=== PATIENT | male | born 1995 | race Caucasian/White ===

== ENCOUNTER 2019-07-28 09:17 | Emergency (ER) | payer SELFPAY ==
[2019-07-28 09:40] VITALS: BP 124/74; PULSE 72; RESP 20; TEMP 37.1; O2SAT 97
--- NOTE | 2019-07-28 09:59 | ED.GENADULT ---
HPI - General Adult General Chief complaint: Upper Respiratory Infection Stated complaint: sore throat headache dizzy History of Present Illness HPI narrative: Mr. Soto is a previously healthy man that presented to the ED with a sore throat, subjective fevers, body aches, headache and fatigue. He has been self isolating and reports no sick contacts and is not around any children. No CP, dyspnea, or GI symptoms. He is previously from [place] and speaks [place] but does have trouble with some medical terminology while describing his symptoms. Related Data Allergies Allergy/AdvReac Type Severity Reaction Status Date / Time No Known Allergies Allergy Verified 07/28/19 09:48 Review of Systems Constitutional: Constitutional: Reports as per HPI Eyes: Eyes: Reports no additional eye complaints ENT: Reports as per HPI Cardiovascular: Cardiovascular: Reports no additional cardiovascular complaints Respiratory: Respiratory: Reports no additional respiratory complaints Gastrointestinal: Gastrointestinal: Reports no additional gastrointestinal complaints Genitourinary: Genitourinary: Reports no additional male genitourinary complaints Musculoskeletal: Musculoskeletal: Reports no additional musculoskeletal complaints Integumentary/Breasts: Skin/Breast: Reports system reviewed and no additional complaints, except as docu Neurologic: Reports system reviewed and no additional complaints, except as documented Psychiatric: Psychiatric: Reports no additional psychiatric complaints Endocrine: Endocrine: Reports no additional endocrine complaints Hematologic/Lymphatic: Hematologic/Lymphatic: Reports no additional hematologic/lymphatic complaints Allergic/Immunologic: Allergic/Immunologic: Reports no additional allergic/immunologic complaints Exam Const: General: no acute distress Orientation/consciousness: patient oriented x3 HENMT: Other: Normocephalic, atraumatic Right sided submandibular and anterior cervical lymphadenopathy, enlarged tonsils with purulent exudate Eyes: Conjunctivae: conjunctivae normal Pupils: Equal, round and reactive pupils present Neck: Neck: lymphadenopathy (anterior cervical and right submandibular) Chest: Chest palpation & inspection: normal inspection of the chest Resp: Effort & Inspection: normal respiratory effort and not labored Auscultation: clear to auscultation bilaterally Cardio: Rate: regular rate Rhythm: regular rhythm GI: Inspection: non-distended GI Palp: Yes Soft to palpation and No Tenderness to palpation present (GI) : Testes: Testes normal Skin: General skin exam: normal color Rashes: no rashes Neuro: General: patient oriented x3 and moves all extremities Extrem: General: normal to inspection Psych: Mental Status: mental status grossly normal Course Course Emergency Course: Mr. Soto was seen and evaluated. Ordered strep, flu and COVID. Given toradol for pain. Vitals wnl. Vital Signs Vital signs: Vital Signs Temperature 37.1 C 07/28/19 09:40 Pulse Rate 72 07/28/19 09:40 Respiratory Rate 20 07/28/19 09:40 Blood Pressure 124/74 07/28/19 09:40 Pulse Oximetry 97 07/28/19 09:40 Temperature 37.1 C 07/28/19 09:40 Pulse Rate 72 07/28/19 09:40 Respiratory Rate 20 07/28/19 09:40 Blood Pressure 124/74 07/28/19 09:40 Pulse Oximetry 97 07/28/19 09:40 Medical Decision Making MDM Narrative Medical decision making narrative: Centar score 3. Orderd strep test. However, this was negative. Given his lymphadenopathy and exudate he was still given penicillin and instructed to take OTC allergy meds as this may still be contributing. Differential Diagnosis Differential Diagnosis: Strep vs. flu like illness vs COVID vs allergies vs other. Vital Signs Vital Signs: Vital Signs Temperature 37.1 C 07/28/19 09:40 Pulse Rate 72 07/28/19 09:40 Respiratory Rate 20 07/28/19 09:40 Blood Pressure 124/74 07/28/19 09:40 Pulse Ox
--- NOTE | 2019-07-28 10:02 | PC.NURSE ---
report to darian longo
[2019-07-28 10:20] LABS: Influenza Control Valid (Valid)
[2019-07-28] MEDS: KETOROLAC (*BKC) 60 MG/2 ML VIAL 30 MG IM (10:20)
[2019-07-28 10:40] VITALS: RESP 15
[2019-07-29 13:36] LABS: SARS-CoV-2 RNA PCR Negative
== END 2019-07-28 10:40 | disposition home or self-care (01) ==
PROVIDERS: Emergency Provider Family Medicine
DX: J02.0 Streptococcal pharyngitis (principal); J30.2 Other seasonal allergic rhinitis
CPT/HCPCS: 87081; 87635; 87804; 87880; 96372; 99283; C9803; J1885; U0003